=== PATIENT | male | born 1985 | race Two or more races ===

== ENCOUNTER → 2016-10-03 | Outpatient (CLI) | payer MEDICAID ==
--- NOTE | 2016-10-03 17:43 | DX ---
PA and Lateral Chest Clinical Indications: Chest pain. History of trauma. Findings: The lungs are clear. Hilar and mediastinal contours are normal. There is no pneumothorax. O sseous structures are intact. The heart size and pulmonary vascularity are normal. Impression: Chest negative for acute posttraumatic sequela.
== END ==
LOC: BRMIMAGING 16:36
PROVIDERS: ATTEND Registered Nurse
DX: R07.89 Other chest pain (principal)
CPT/HCPCS: 71020-PO